=== PATIENT | male | born 1970 | race Caucasian/White ===

== ENCOUNTER 2021-03-21 12:18 | Outpatient (REF) | payer OTHER, SELFPAY | END 2021-03-21 12:19 | disposition home or self-care (01) | LOC: HO.LAB 12:18 | PROVIDERS: Visit Provider Internal Medicine | DX: Z20.822 Contact with and (suspected) exposure to COVID-19 (principal) | CPT/HCPCS: C9803; U0003; U0005 ==

== ENCOUNTER 2021-07-21 10:36 | Outpatient (REF) | payer OTHER, SELFPAY ==
[2021-07-21 11:24] LABS: Binax Internal Control QC Valid; Binax Now Covid-19 Ag Positive (Negative)
== END 2021-07-21 10:37 | disposition home or self-care (01) ==
LOC: HO.LAB 10:36
PROVIDERS: Visit Provider Internal Medicine
DX: Z20.822 Contact with and (suspected) exposure to COVID-19 (principal)
CPT/HCPCS: 36415; C9803

== ENCOUNTER 2021-07-28 11:50 | Outpatient (REF) | payer OTHER, SELFPAY ==
[2021-07-28 12:27] LABS: Binax Internal Control QC Valid; Binax Now Covid-19 Ag Positive (Negative)
== END 2021-07-28 11:51 | disposition home or self-care (01) ==
LOC: HO.LAB 11:50
PROVIDERS: Visit Provider Internal Medicine
DX: Z20.822 Contact with and (suspected) exposure to COVID-19 (principal)
CPT/HCPCS: C9803

== ENCOUNTER 2021-08-28 09:44 | Outpatient (REF) | payer OTHER, SELFPAY ==
[2021-08-28 10:21] LABS: COVID-19 Test Negative (Negative); IDNOW Serial# 16C4AD1C
== END 2021-08-28 09:45 | disposition home or self-care (01) ==
LOC: HO.LAB 09:44
PROVIDERS: Visit Provider Internal Medicine
DX: Z20.822 Contact with and (suspected) exposure to COVID-19 (principal)
CPT/HCPCS: 87635; C9803